=== PATIENT | female | born 1965 | race Caucasian/White ===

== ENCOUNTER 2021-07-27 08:57 | Outpatient (CLI) | payer BC | END 2021-07-27 08:58 | disposition home or self-care (01) | LOC: CSHMAMMO 08:57 | PROVIDERS: ATTEND Internal Medicine Hematology & Oncology | DX: C50.412 Malignant neoplasm of upper-outer quadrant of left female breast (principal) | CPT/HCPCS: 77066; G0279 ==

== ENCOUNTER 2023-08-24 13:59 | Outpatient (CLI) | payer BC | END 2023-08-24 14:00 | disposition home or self-care (01) | LOC: CSHMAMMO 13:59 | PROVIDERS: ATTEND Internal Medicine Hematology & Oncology | DX: Z12.31 Encounter for screening mammogram for malignant neoplasm of breast (principal); Z80.3 Family history of malignant neoplasm of breast; Z85.3 Personal history of malignant neoplasm of breast; Z98.890 Other specified postprocedural states | CPT/HCPCS: 77063; 77067 ==

== ENCOUNTER 2024-08-29 09:26 | Outpatient (CLI) | payer BC | END 2024-08-29 09:27 | disposition home or self-care (01) | LOC: CSHMAMMO 09:26 | PROVIDERS: ATTEND Internal Medicine Hematology & Oncology | DX: Z12.31 Encounter for screening mammogram for malignant neoplasm of breast (principal); Z80.3 Family history of malignant neoplasm of breast; Z85.3 Personal history of malignant neoplasm of breast; Z98.890 Other specified postprocedural states | CPT/HCPCS: 77063; 77067 ==